=== PATIENT | female | born 1990 | race Caucasian/White ===

== ENCOUNTER 2020-05-10 10:27 | Emergency (ER) | payer OTHER ==
[2020-05-10 12:03] LABS: RED BLOOD COUNT 4.91 M/UL (4.00-5.10); WHITE BLOOD COUNT 6.7 K/UL (4.5-11.0)
[2020-05-10 12:31] LABS: BUN/CREATININE RATIO 30 (0-10)
[2020-05-10] MEDS ORDERED: PHENERGAN 25 MG25 M1 PO (13:50)
[2020-05-10] MEDS ORDERED: KEFLEX CAP 500500 MG PO (13:50)
[2020-05-10] MEDS ORDERED: ONDANSETRON ODT4 MG SL (13:50)
== END 2020-05-10 14:13 | disposition home or self-care (01) ==
LOC: ER1 10:27
PROVIDERS: Physician Assistant
DX: O20.0 Threatened abortion (principal); O23.91 Unspecified genitourinary tract infection in pregnancy, first trimester; R82.71 Bacteriuria; Z3A.08 8 weeks gestation of pregnancy; Z88.0 Allergy status to penicillin
CPT/HCPCS: 80053; 81001; 84702; 84703; 85025; 86900; 86901; 99284

== ENCOUNTER 2020-07-13 11:07 | Emergency (ER) | payer OTHER ==
[~2020-07-13 11:07] MED LIST: KEFLEX CAP 500500 MG PO; ONDANSETRON ODT4 MG SL; PHENERGAN 25 MG25 M1 PO
[2020-07-13 12:33] LABS: HEMOGLOBIN 13.5 gm/dl (12.3-15.3); RED BLOOD COUNT 4.19 M/UL (4.00-5.10); WHITE BLOOD COUNT 7.7 K/UL (4.5-11.0)
[2020-07-13 12:58] LABS: BUN/CREATININE RATIO 16 (0-10)
== END 2020-07-13 13:32 | disposition home or self-care (01) ==
LOC: ER1 11:07
PROVIDERS: Family Medicine
DX: O99.891 Other specified diseases and conditions complicating pregnancy (principal); M94.0 Chondrocostal junction syndrome [Tietze]; Z88.0 Allergy status to penicillin; Z88.1 Allergy status to other antibiotic agents; Z3A.18 18 weeks gestation of pregnancy
CPT/HCPCS: 80053; 85025; 85379; 93005; 99284

== ENCOUNTER 2020-12-11 17:01 | Inpatient (IN) | payer OTHER ==
[~2020-12-11] VITALS: Ht 167.6 cm; Wt 74.4 kg
[2020-12-11 17:49] LABS: HEMOGLOBIN 12.4 gm/dl (12.3-15.3); RED BLOOD COUNT 3.93 M/UL (4.00-5.10); WHITE BLOOD COUNT 8.2 K/UL (4.5-11.0)
[2020-12-11] MEDS ORDERED: PRENATAL VITAM1 EAC3 PO (18:25)
[2020-12-13 07:21] LABS: HEMOGLOBIN 11.1 gm/dl (12.3-15.3)
[2020-12-13] MEDS ORDERED: HYDROCODON-ACE1 EAC4 PO (14:56)
[2020-12-13] MEDS ORDERED: DOCUSATE SODIU100 MG PO (14:56)
[2020-12-13] MEDS ORDERED: IBUPROFEN600 MG PO (14:56)
== END 2020-12-13 20:13 | disposition home or self-care (01) | DRG 788 ==
LOC: GENOP 17:01 → OB 17:25
PROVIDERS: Obstetrics & Gynecology; ADMIT Obstetrics & Gynecology
PROC: 4A1HXCZ Monitoring of Products of Conception, Cardiac Rate, External Approach (ICD-10-PCS; 2020-12-12)
PROC: 10D00Z1 Extraction of Products of Conception, Low, Open Approach (ICD-10-PCS; principal; 2020-12-12 13:42)
DX: O76 Abnormality in fetal heart rate and rhythm complicating labor and delivery (principal); Z3A.39 39 weeks gestation of pregnancy; Z37.0 Single live birth; O62.2 Other uterine inertia; Z20.822 Contact with and (suspected) exposure to COVID-19
CPT/HCPCS: 36415; 81001; 82800; 85014; 85018; 85025; 90471; 90715; C9113; J0456; J0690; J1170; J2210; J2250; J2274; J2405; J2590; J3010; J7030; J7120; U0003